=== PATIENT | female | born 1940 | race Caucasian/White ===

== ENCOUNTER 2017-04-13 06:28 | Inpatient (IN) | payer OTHER ==
--- NOTE | 2017-04-12 17:57 | GHP ---
[f rep st] PREOP HISTORY AND PHYSICAL DATE OF ADMISSION: 04/13/2017 HISTORY OF PRESENT ILLNESS: The patient is a 76-year-old female, referred to us by her herbologist for repair of a large ventral hernia. Risks and options have been discussed including, but not limit ed to, bleeding, infection, nerve injury, recurrent hernia, damage to surrounding structures, bowel i njury, and other problems, and she requests to proceed. PAST MEDICAL HISTORY: Includes diabetes, coronary artery disease, renal lithiasis, colon cancer, hig h blood pressure, hypercholesteremia. PAST SURGICAL HISTORY: Includes hysterectomy, cholecystectomy, kidney stone removal, colon resection for cancer, tonsillectomy and adenoidectomy. MEDICATIONS: Include Lipitor and metformin. Full list to be confirmed day of surgery. ALLERGIES: Sulfa, niacin. PHYSICAL EXAMINATION: GENERAL: Reveals a 76-year-old female, in no acute distress. HEENT: Normoce phalic, atraumatic. CHEST: Clear to auscultation bilaterally. CARDIAC: Regular rate and rhythm. ABDOMEN: Soft with a large reducible ventral mass. EXTREMITIES: Warm and dry. IMPRESSION: This is a 76-year-old female with a large ventral hernia. PLAN: Plan is to proceed with open ventral hernia repair with mesh. Risks and options have been dis cussed and she requests to proceed. /[id number]/MODL
[2017-04-13] MEDS ORDERED: LIDOCAINE 1% 2 ML INJ ONE (06:52)
[2017-04-13] MEDS ORDERED: ceFAZolin 2 GM/SWFI 2 GM/20 ML SYR IVP ONE (06:59)
[2017-04-13] MEDS ORDERED: LR 1,000 ML IV ONE (07:02)
[2017-04-13] MEDS ORDERED: LIDOCAINE 1% 2 ML INJ ID PRN (07:02)
[2017-04-13] MEDS ORDERED: BUPIVACAINE 0.5% 30 ML SDV ONE (07:32)
[2017-04-13 07:40] LABS: % IMMATURE GRANULYOCYTES 0.5 % (0.0-1.1); ABSOLUTE IMMATURE GRANULOCYTES 0.04 10^3/uL (0.00-0.10); ADD DIFF? NO; ADD MORPH? NO; ADD SCAN? NO; ATYPICAL LYMPHOCYTE FLAG 0 (0-99); FRAGMENT RBC FLAG 0 (0-99); HEMATOCRIT 38.8 % (38.0-47.0); LEFT SHIFT FLG 0 (0-99); LIPEMIA HEMOLYSIS FLAG 80 (0-99); MEAN CELL HEMOGLOBIN 28.7 pg (27.9-34.1); MEAN CELL HEMOGLOBIN CONCENTR. 33.5 g/dL (32.4-36.7); MEAN CELL VOLUME 85.7 fL (81.5-99.8); MEAN PLATELET VOLUME 9.2 fL (8.7-11.7); PLATELET CLUMPS FLAG 10 (0-99); PLATELET COUNT 296 10^3/uL (150-400); RED BLOOD CELL COUNT 4.53 10^6/uL (4.18-5.33); RED CELL DISTRIBUTION WIDTH 13.9 % (11.5-15.2)
--- NOTE | 2017-04-13 07:44 | PDANEPAE ---
ANE History of Present Illness Large ventral hernia s/p colon resection ANE Past Medical History - Cardiovascular History Hx Hypertension: Yes Hx Coronary Artery / Peripheral Vascular Disease: Yes Cardiovascular History Comment: HYPERLIPIDEMIA - Pulmonary History Hx COPD: No Hx Asthma/Reactive Airway Disease: No Hx Recent Upper Respiratory Infection: No Hx Oxygen in Use at Home: No Hx Sleep Apnea: No Sleep Apnea Screening Result - Last Documented: Negative - Neurologic History Hx Cerebrovascular Accident: No Hx Seizures: No Hx Dementia: No - Endocrine History Hx Diabetes: Yes Endocrine History Comment: DM II - Renal History Hx Renal Disorders: Yes Renal History Comment: URINARY RETENTION. SELF CATH TWICE DAILY. UTIs RECURRENT - Liver History Hx Hepatic Disorders: No Hepatic History Comment: SAMIR - Neurological & Psychiatric Hx Hx Neurological and Psychiatric Disorders: No Neurological / Psychiatric History Comment: SERTRALINE - Cancer History Hx Cancer: Yes Cancer History Comment: COLON CANCER - Congenital Disorder History Hx Congenital Disorders: No - GI History Hx Gastrointestinal Disorders: Yes Gastrointestinal History Comment: COLON RESECTION - Other Health History Other Health History: NEG - Chronic Pain History Chronic Pain: No - Surgical History Prior Surgeries: KIDNEY STONE REMOVAL X2. BLADDER STIMULATOR IMPLANT & REMOVAL. HYSTERECTOMY. COLON RESECTION. CHOLECYSTECTOMY. ABD MASS EXCISION ANE Review of Systems Review of Systems: - Exercise capacity METS (RN): 4 METS ANE Patient History - Allergies Allergies/Adverse Reactions: Sulfa (Sulfonamide Antibiotics) Allergy (Intermediate, Verified 04/08/17 15:12) Flushing - Home Medications Home medications: home medication list seen and reviewed Home Medications: Aspirin EC [Aspirin EC 81 mg (*)] 81 mg PO DAILY@18 04/08/17 [Last Taken ] Atorvastatin Calcium [Lipitor 10 mg (*)] 10 mg PO HS 04/08/17 [Last Taken ] FENOFIBRATE 160 mg PO HS 04/08/17 [Last Taken 04/12/17] Gabapentin [Neurontin 100 MG (*)] 100 mg PO BID 04/08/17 [Last Taken 04/12/17] Herbals/Supplements -Info Only 1 ea PO DAILY 04/08/17 [Last Taken Unknown] Hydrochlorothiazide [HCTZ (*)] 25 mg PO DAILY 04/08/17 [Last Taken 04/12/17] Levomefolate/B6/B12/Algal Oil [Metanx Capsule] 1 cap PO DAILY 04/08/17 [Last Taken Unknown] Memantine HCl [Namenda Xr] 14 mg PO DAILY@12 04/08/17 [Last Taken 04/12/17] Sertraline HCl [Zoloft 50mg (*)] 50 mg PO DAILY 04/08/17 [Last Taken 04/13/17] metFORMIN HCL [Glucophage 500 mg (*)] 500 mg PO BIDMEAL 04/08/17 [Last Taken ] - NPO status NPO Since - Liquids (Date): 04/12/17 NPO Since - Liquids (Time): 21:00 NPO Since - Solids (Date): 04/12/17 NPO Since - Solids (Time): 18:00 - Anes Hx Anes Hx: no prior problems - Smoking Hx Smoking Status: Never smoked - Family Anes Hx Family Hx Anesthesia Complications: NEG ANE Labs/Vital Signs - Labs Result Diagrams: 04/13/17 06:59 04/13/17 06:59 - Vital Signs Blood Pressure: 130/71 Heart Rate: 59 Respiratory Rate: 16 O2 Sat (%): 94 Height: 160.02 cm Weight: 74.843 kg ANE Physical Exam - Airway Neck exam: decreased ROM Mallampati Score: Class 3 Mouth exam: normal dental/mouth exam - Pulmonary Pulmonary: no respiratory distress - Cardiovascular Cardiovascular: regular rate and rhythym - ASA Status ASA Status: III (Poss diff intubation. Will have glidescope avaliable.) ANE Anesthesia Plan Anesthesia Plan: general endotracheal anesthesia, epidural (Thorasic epiduraL for POPM PSR)
[2017-04-13 07:52] LABS: ANION GAP 15 mEq/L (8-16); CALCIUM 10.2 mg/dL (8.5-10.4); CARBON DIOXIDE 23 mEq/l (22-31); CHLORIDE 103 mEq/L (97-110); GLOMERULAR FILTRATION RATE 54; GLUCOSE 114 mg/dL (70-100); POTASSIUM 4.5 mEq/L (3.5-5.2); SODIUM 141 mEq/L (134-144)
[2017-04-13] MEDS ORDERED: MIDAZOLAM 2 MG/2 ML VIAL IVP ONE (08:00)
[2017-04-13] MEDS ORDERED: MIDAZOLAM 2 MG/2 ML VIAL ONE (08:02)
[2017-04-13] MEDS ORDERED: PROPOFOL 200 MG/20 ML VIAL ONE (08:04)
[2017-04-13] MEDS ORDERED: fentaNYL 100 MCG/2 ML INJ ONE ×2 (08:04→09:34)
[2017-04-13] MEDS ORDERED: LIDOCAINE 2% 5 ML SDV ONE (08:07)
[2017-04-13] MEDS ORDERED: ROCURONIUM 50 MG/5 ML VIAL ONE ×2 (08:08→09:18)
[2017-04-13] MEDS ORDERED: NALOXONE HCL 0.4 MG/ML INJ IVP PRN ×2 (09:24)
[2017-04-13] MEDS ORDERED: ONDANSETRON 4 MG/2 ML VIAL IVP PRN ×2 (09:24→10:28)
[2017-04-13] MEDS ORDERED: HYDROmorph 10MCG/ML&BUP 0.0625% in 100ML NS EP SCH (09:24)
[2017-04-13] MEDS ORDERED: NARCOTIC DRIP BAG-TOTAL ALL TYPES EP PRN (09:24)
[2017-04-13] MEDS ORDERED: fentaNYL 100 MCG/2 ML INJ IVP PRN (09:24)
[2017-04-13] MEDS ORDERED: DEXAMETHASONE 4 MG/ML VIAL ONE (09:30)
[2017-04-13] MEDS ORDERED: ONDANSETRON 4 MG/2 ML VIAL ONE (09:31)
[2017-04-13] MEDS ORDERED: SUGAMMADEX SODIUM 200 MG/2 ML VIAL IVP ONE (09:33)
[2017-04-13] MEDS ORDERED: THROMBIN (BOVINE) 20,000 UNIT SPRAY TP ONE (09:55)
--- NOTE | 2017-04-13 10:26 | POSTANESTH ---
Post Anesthetic Evaluation Cardiovascular Status: Normal, Stable Respiratory Status: Normal, Stable Level of Consciousness/Mental Status: Alert and Oriented, Mildly Sleepy, Arousable Pain Control: Adequate, Prn Tx Ordered Nausea/Vomiting Control: Adequate, Prn Tx Ordered Complications Possibly Related to Anesthesia: None Noted
[2017-04-13] MEDS ORDERED: D50W 25 GM/50 ML SYR IVP PRN (10:34)
--- NOTE | 2017-04-13 11:57 | POSTOPPROG ---
Post Op Note Date of Operation: 04/13/17 Surgeon: Lisandro Arango Seo Manager: Mirella Mcdowell Anesthesiologist: Jcarlos Urias Anesthesia: GET(General Endotracheal) Pre-op Diagnosis: large incisional VH Post-op Diagnosis: same Procedure: open repair of large VH c mesh Findings: large defect, 20 x 25 cm mesh used Inf/Abcess present in the surg proc area at time of surgery?: No EBL: 50-100 Complications: none Drains: Memo Bunch
[2017-04-13] MEDS: Memantine Hcl [Namenda Xr] 14 MG PO SCH (12:30)
[2017-04-13] MEDS: INSULIN REGULAR HUMAN 100 UNIT/ML SC SCH ×3 (13:53→22:55)
[2017-04-13] MEDS: NS W/ 20 KCl/L 1,000 ML IV SCH ×2 (13:54→23:35)
[2017-04-13] MEDS ORDERED: ALBUMIN 5% 1,000 ML IV ONE (15:00)
[2017-04-13] MEDS: HYDROmorph 10MCG/ML&BUP 0.0625% in 100ML NS EP SCH (17:28)
--- NOTE | 2017-04-13 20:33 | GOP ---
[f rep st] OPERATIVE REPORT DATE OF OPERATION: 04/13/2017 SURGEON: Lisandro Arango MD ICEBOX MAN: BELÉN Delacruz. ANESTHESIOLOGIST: London Urias MD. PREOPERATIVE DIAGNOSIS: Giant ventral hernia. POSTOPERATIVE DIAGNOSIS: Giant ventral hernia. PROCEDURE PERFORMED: Ventral hernia repair with mesh. FINDINGS: Patient was found to have a 20 cm hernia defect in the midline of her previous old laparot jose miguel scar. There was no other defects identified, although her fascia was quite attenuated very far l aterally. ESTIMATED BLOOD LOSS: Less than 50 cc. DESCRIPTION OF PROCEDURE: Patient taken to the operating room where she received a satisfactory gene ral endotracheal anesthesia by Dr. Urias. Placed in supine position, prepped and draped in [facility] sterile fashion. A midline abdominal incision was made through the previous old scar. Dissectio n was carried down through subcutaneous tissue and the hernia sac was almost immediately encountered. The sac was dissected free from surrounding subcutaneous tissue and well back underneath the skin f laps on either side. The sac was then opened. Its contents were reduced. Excess sac was excised ba ck to good fascial edges. A dual-sided Covidien mesh patch was introduced subfascially. It was cove red with omentum. It was anchored in place around the periphery with interrupted 0 Ethibond mattress sutures. These were placed at least 3-4 inches lateral to the main incision. After that was secure d, the defect itself was closed in a dual layer [id number] type closure. This was done with a # 1 Ethibond mattress sutures. In areas that were more difficult to overlap, simple [id number]-[id number] lin tures were used approximating the fascia, which was all done without undue tension. The wound was in filtrated with 0.5% Marcaine, some topical thrombin was sprayed over the incision. A 15 round silico ne POPPY drain was brought out through a separate stab incision and secured to the skin with a 2-0 silk suture. The wound was closed in layers using a running 2-0 Vicryl suture for the subcutaneous tissue and skin marixa for the skin. The wound was dressed. She tolerated the procedure well. She was t aken to the recovery room in good condition. COMPLICATIONS: There were no complications. Taken to the recovery room in good condition. Copy requested to: Dr. Mccall /[id number]/MODL
[2017-04-13] MEDS ORDERED: NON-FORMULARY NEW DRUG (Fenofibrate [Fenofibrate] 160 MG) PO SCH (21:00)
[2017-04-13] MEDS: ATORVASTATIN CALCIUM 10 MG TAB PO SCH (21:03)
[2017-04-13] MEDS: DOCUSATE SODIUM 100 MG CAP PO SCH (21:03)
[2017-04-13] MEDS: GABAPENTIN 100 MG CAP PO SCH (21:03)
[2017-04-14 05:18] LABS: HEMATOCRIT 31.8 % (38.0-47.0); HEMOGLOBIN 10.3 g/dL (12.6-16.3)
[2017-04-14 05:37] LABS: ANION GAP 14 mEq/L (8-16); CALCIUM 8.3 mg/dL (8.5-10.4); CARBON DIOXIDE 22 mEq/l (22-31); CHLORIDE 106 mEq/L (97-110); CREATININE 1.7 mg/dL (0.6-1.0); GLOMERULAR FILTRATION RATE 29; GLUCOSE 103 mg/dL (70-100); POTASSIUM 4.7 mEq/L (3.5-5.2); SODIUM 142 mEq/L (134-144)
[2017-04-14] MEDS: NS W/ 20 KCl/L 1,000 ML IV SCH ×3 (06:26→21:55)
[2017-04-14] MEDS: INSULIN REGULAR HUMAN 100 UNIT/ML SC SCH ×4 (08:06→21:50)
[2017-04-14] MEDS: FENOFIBRATE 145 MG TAB PO SCH (08:08)
[2017-04-14] MEDS: HYDROCHLOROTHIAZIDE 25 MG TAB PO SCH (08:08)
[2017-04-14] MEDS: GABAPENTIN 100 MG CAP PO SCH ×2 (08:08→20:42)
[2017-04-14] MEDS: DOCUSATE SODIUM 100 MG CAP PO SCH ×2 (08:09→20:42)
[2017-04-14] MEDS: ENOXAPARIN 40 MG/0.4 ML SYR SC SCH ×2 (08:09→08:13)
[2017-04-14] MEDS: SERTRALINE HCL 50 MG TAB PO SCH (08:09)
[2017-04-14] MEDS: DC NARCS MISC SCH (08:16)
[2017-04-14] MEDS: REGARDING ANTICOAG MISC SCH (08:17)
--- NOTE | 2017-04-14 09:42 | SOAPPROG ---
SOAP Progress Note Assessment/Plan: Assessment/Plan: 76 Y F s/p large ventral hernia repair, POD#1. Hypotension improved. ISA. Cr 1.7. Probably 2/2 hypotension, hypovolemia. Hold nephrotoxic agents. Continue IVF. Repeat labs in am. If worse tomorrow conisder hospitalist/renal consult. Pain. Epidural helping. Still c/o breakthrough with coughing, moving. Defer to anesthesia. Continue negrete while epidural in place. Also good for accurate I and O's in light of elevated Cr. DM. BS checks. Continue sliding scale and holding of metformin 2/2 Cr. Advance diet at lunch. Patient advised to go slowly. IS. VTE ppx. d/c lovenox. change to heparin. S: no n/v. less sleepy this am. unsure about flatus. O: alert, nad mmm chest clear rrr abd soft, inc well dressed no shadowing. drain serosanguinous. +BSs. 04/14/17 09:46 Objective: Vital Signs Temp Pulse Resp BP Pulse Ox 38 C 98 16 119/46 L 91 L 04/14/17 07:56 04/14/17 07:56 04/14/17 07:56 04/14/17 07:56 04/14/17 07:56 Laboratory Results 04/14/17 04:27 04/14/17 04:27 04/13/17 04/14/17 04/15/17 05:59 05:59 05:59 Intake Total 4129 Output Total 620 Balance 3509 ICD10 Worksheet Patient Problems: Problems Problem Status Onset Ventral hernia Acute
[2017-04-14] MEDS: HYDROmorph 10MCG/ML&BUP 0.0625% in 100ML NS EP SCH (09:43)
[2017-04-14] MEDS: Memantine Hcl [Namenda Xr] 14 MG PO SCH (12:03)
[2017-04-14] MEDS: HEPARIN 5,000 UNIT/0.5 ML SYR SC SCH ×2 (14:04→20:44)
--- NOTE | 2017-04-14 15:49 | POSTANESTH ---
Post Anesthetic Evaluation Cardiovascular Status: Normal, Stable, Similar to Pre-Op Cond Respiratory Status: Normal, Stable, Similar to Pre-op Cond. Level of Consciousness/Mental Status: Can Participate in Eval, Alert and Oriented Pain Control: Adequate, Prn Tx Ordered Nausea/Vomiting Control: Adequate, Prn Tx Ordered Complications Possibly Related to Anesthesia: None Noted Notes: Pt seen and examined. POD#1 s/p larger ventral hernia repair, thoracic epidural for POPC. Pt is comfortable, rates pain as 3/10 at rest, 5/10 with movement, within her goals. Denies nausea, mild pruritis (tolerable). Was able to ambulate with assistance this am. Back site is c/d/i without e/e/e. Recommend to continue PCEA as ordered. Continue to ambulate with assistance. Thank you for this interesting consult, please don't hesitate to call with questions or concerns.
--- NOTE | 2017-04-14 16:26 | ASMTCMCOM ---
CM Note CM Note Notes: Dc needs unclear, pt had large ventral hernia repair, RN to put in for PT/OT eval, CM w/f. Date Signed: 04/14/2017 04:25 PM Electronically Signed By:Angely Lund RN
[2017-04-14] MEDS: ACETAMINOPHEN 325 MG TAB PO PRN (20:42)
[2017-04-14] MEDS: ATORVASTATIN CALCIUM 10 MG TAB PO SCH (20:42)
[2017-04-15] MEDS: diphenhydrAMINE 25 MG CAP PO PRN ×2 (04:25→21:06)
[2017-04-15] MEDS: HYDROmorph 10MCG/ML&BUP 0.0625% in 100ML NS EP SCH ×2 (04:27→23:44)
[2017-04-15] MEDS: NS W/ 20 KCl/L 1,000 ML IV SCH (04:34)
[2017-04-15 05:32] LABS: ANION GAP 13 mEq/L (8-16); CALCIUM 7.6 mg/dL (8.5-10.4); CARBON DIOXIDE 19 mEq/l (22-31); CHLORIDE 106 mEq/L (97-110); CREATININE 0.8 mg/dL (0.6-1.0); GLOMERULAR FILTRATION RATE > 60; GLUCOSE 136 mg/dL (70-100); POTASSIUM 4.4 mEq/L (3.5-5.2); SODIUM 138 mEq/L (134-144)
[2017-04-15] MEDS: HEPARIN 5,000 UNIT/0.5 ML SYR SC SCH ×3 (05:47→20:58)
[2017-04-15] MEDS: INSULIN REGULAR HUMAN 100 UNIT/ML SC SCH ×4 (09:02→20:58)
[2017-04-15] MEDS: DOCUSATE SODIUM 100 MG CAP PO SCH ×2 (09:03→20:58)
[2017-04-15] MEDS: FENOFIBRATE 145 MG TAB PO SCH (09:03)
[2017-04-15] MEDS: DC NARCS MISC SCH (09:04)
[2017-04-15] MEDS: GABAPENTIN 100 MG CAP PO SCH ×2 (09:04→20:58)
[2017-04-15] MEDS: SERTRALINE HCL 50 MG TAB PO SCH (09:04)
[2017-04-15] MEDS: HYDROCHLOROTHIAZIDE 25 MG TAB PO SCH (09:04)
[2017-04-15] MEDS: REGARDING ANTICOAG MISC SCH (09:05)
--- NOTE | 2017-04-15 10:58 | POSTANESTH ---
Post Anesthetic Evaluation Cardiovascular Status: Normal, Stable Respiratory Status: Normal, Stable Level of Consciousness/Mental Status: Can Participate in Eval Pain Control: Adequate, Prn Tx Ordered Nausea/Vomiting Control: Adequate, Prn Tx Ordered Complications Possibly Related to Anesthesia: None Noted Notes: POD #2 large ventral hernia. Pt seen and examined. Pt sitting in chair eating breakfast. Comfortable with pain about 3 at rest and increases to 5 - 6 with movement. Has not taken any pain meds other than epidural. Report no leg weakness or numbness (in excess of baseline neuropathy in feet). Has ambulated. Back inspected and appears clean and dry without redness or swelling. Catheter intact. Will continue PCEA at present settings for another day, or possibly two.
[2017-04-15] MEDS: Memantine Hcl [Namenda Xr] 14 MG PO SCH (12:05)
--- NOTE | 2017-04-15 13:31 | SOAPPROG ---
SOAP Progress Note Assessment/Plan: Assessment/Plan: - 76yo F s/p ventral hernia repair - Epidural for pain, appears to be working appropriately - Very poor pulmonary effort despite good analgesia with epidural. Discussed need for pulm toilet. Resp therapy to see her and work with breathing exercises - Abdomen soft, ND and aTTP. Has good bowel sounds and she is passing flatus 04/15/17 13:29 Subjective: eating, was upset they didnt put ham into her omelette as it was ordered Objective: Vital Signs Temp Pulse Resp BP Pulse Ox 36.7 C 114 H 20 134/81 H 92 04/15/17 11:38 04/15/17 11:38 04/15/17 11:38 04/15/17 11:38 04/15/17 11:38 Laboratory Results 04/14/17 04:27 04/15/17 04:51 04/14/17 04/15/17 04/16/17 05:59 05:59 05:59 Intake Total 4129 2332 Output Total 622 1755 160 Balance 3509 577 -160 ICD10 Worksheet Patient Problems: Problems Problem Status Onset Ventral hernia Acute - ICD10 Problem Qualifiers (1) Ventral hernia
--- NOTE | 2017-04-15 16:11 | ASMTCMCOM ---
CM Note CM Note Notes: Pt had a large hernia repair, PT/OT at this time recommending snf, but pt may progress as she continues to work with therapy. Spoke w/, states pt is independent at baseline, CM w/continue to follow. Current DC Plan: TBD Date Signed: 04/15/2017 04:11 PM Electronically Signed By:Angely Lund RN
[2017-04-15] MEDS: ATORVASTATIN CALCIUM 10 MG TAB PO SCH (20:58)
[2017-04-16] MEDS: HEPARIN 5,000 UNIT/0.5 ML SYR SC SCH ×3 (06:02→21:38)
[2017-04-16] MEDS: INSULIN REGULAR HUMAN 100 UNIT/ML SC SCH ×4 (07:59→21:39)
--- NOTE | 2017-04-16 08:55 | SOAPPROG ---
SOAP Progress Note Assessment/Plan: Assessment: 76yo female s/p open ventral hernia repair Pain controlled, tolerating diet, has not ambulated yet PE alert Abdomen bandage dry, soft nontender to palpation Plan: d/c negrete mobilize home1-2 days if epidural out and walking well. saw pt with Dr Arango 04/16/17 08:53 Objective: Vital Signs Temp Pulse Resp BP Pulse Ox 37.0 C 81 16 130/67 H 94 04/16/17 07:20 04/16/17 07:20 04/16/17 07:20 04/16/17 07:20 04/16/17 07:20 Laboratory Results 04/14/17 04:27 04/15/17 04:51 04/15/17 04/16/17 04/17/17 05:59 05:59 05:59 Intake Total 2332 1849 400 Output Total 3465 1295 Balance 577 554 400 ICD10 Worksheet Patient Problems: Problems Problem Status Onset Ventral hernia Acute
[2017-04-16] MEDS: GABAPENTIN 100 MG CAP PO SCH ×2 (09:06→21:39)
[2017-04-16] MEDS: FENOFIBRATE 145 MG TAB PO SCH (09:06)
[2017-04-16] MEDS: SERTRALINE HCL 50 MG TAB PO SCH (09:09)
[2017-04-16] MEDS: HYDROCHLOROTHIAZIDE 25 MG TAB PO SCH (09:09)
[2017-04-16] MEDS: DOCUSATE SODIUM 100 MG CAP PO SCH ×2 (09:09→21:39)
[2017-04-16] MEDS: REGARDING ANTICOAG MISC SCH (09:15)
[2017-04-16] MEDS: DC NARCS MISC SCH (09:15)
[2017-04-16] MEDS: Memantine Hcl [Namenda Xr] 14 MG PO SCH (12:38)
--- NOTE | 2017-04-16 14:54 | WOCRNPDOC ---
WOCRJenniffer Advanced Assessment Note - Skin Integrity Problem, Advanced Assess Coccyx Pressure Injury Dressing Type: Allevyn Life Exudate Amount: None Integumentary Issue Intervention: Visualized Under Dressing Iesha Wound Tissue: Blanching, Erythema Iesha Wound Swelling: None Wound Bed Color: Purple Site Measurement - Head-to-Toe Length X Width X Depth (cm): [id number] Pressure Injury Stage: Deep Tissue Injury (DTI) Pressure Injury Present on Admit: No (Hospitalist notified) Skin Integrity Problem Comment: Linear, dark purple area noted directly over patient's coccyx. Location and color are indicative of a suspected deep tissue injury. There are other similar wounds periwound, one on patient's R intergluteal cleft and one on the left. Pressure-relieving interventions, including specialty mattress, TAPS, and protective dresssing initiated by surfacing machine operator Nina this morning when wounds were noted. I ordered a more aggressive pressure-relieving bed (Hill-Rom P500), which has ordered this afternoon. Discussed w/ patient and the importance of off-loading this area to alleviate pressure and mitigate damage. Wound care will continue to follow this patient and monitor as wound evolves. Right Gluteal Cleft Pressure Injury Dressing Type: Allevyn Life Dressing Description: Intact Exudate Amount: None Integumentary Issue Intervention: Visualized Under Dressing Iesha Wound Tissue: Blanching, Erythema Iesha Wound Swelling: Mild Wound Bed Color: Purple Wound Bed Constitution: Intact Serous Filled Blister Site Measurement - Head-to-Toe Length X Width X Depth (cm): 1.5cmx1.7cmx blister Pressure Injury Stage: Deep Tissue Injury (DTI) Pressure Injury Present on Admit: No (Hospitalist notified) Skin Integrity Problem Comment: Area of dark purple, non-blanching tissue noted in patient's innermost R gluteal cleft, consistent w/ suspected deep tissue injury. There is an intact blister over part of this injury. There are other deep tissue injuries in the periwound tissues, surrounded by blanching erythema. Will initiate more aggressive off-loading interventions. Left Gluteal Cleft Pressure Injury Dressing Type: Allevyn Life Exudate Amount: None Exudate Characteristic(s): None Integumentary Issue Intervention: Visualized Under Dressing Iesha Wound Tissue: Blanching, Erythema Iesha Wound Swelling: None Wound Bed Color: Purple Site Measurement - Head-to-Toe Length X Width X Depth (cm): [id number] Pressure Injury Stage: Deep Tissue Injury (DTI) Pressure Injury Present on Admit: No (see note) Skin Integrity Problem Comment: Dark purple lesion w/ intact skin noted in patient's L intergluteal cleft, consistent in appearance w/ a suspected deep tissue injury. As previously noted, there are similar injuries noted in the immediately adjacent tissues over the coccyx and on the innermost R intergluteal cleft. Will continue to keep all wounds covered w/ bordered foam dressings, and continue off-loading area.
[2017-04-16] MEDS: ENALAPRILAT DIHYDRATE 1.25 MG/ML VIAL IVP PRN (15:07)
--- NOTE | 2017-04-16 15:49 | POSTANESTH ---
Post Anesthetic Evaluation Cardiovascular Status: Normal, Stable Respiratory Status: Tx Decrease in SpO2 Level of Consciousness/Mental Status: Can Participate in Eval Pain Control: Adequate, Prn Tx Ordered Nausea/Vomiting Control: Adequate, Prn Tx Ordered (POD 3. epidural site doing well. Tape secured. Site dry no redness. Plan to continue epidural and negrete. Hx neurogenic bladder. Self cath at home)
[2017-04-16] MEDS ORDERED: ALBUTEROL 3 ML DEYVIAL ONE (17:08)
[2017-04-16] MEDS ORDERED: ALBUTEROL 3 ML DEYVIAL IH PRN (17:51)
[2017-04-16] MEDS: HYDROmorph 10MCG/ML&BUP 0.0625% in 100ML NS EP SCH (19:36)
[2017-04-16] MEDS: ATORVASTATIN CALCIUM 10 MG TAB PO SCH (21:39)
[2017-04-17] MEDS: HEPARIN 5,000 UNIT/0.5 ML SYR SC SCH ×3 (05:03→20:26)
[2017-04-17] MEDS: INSULIN REGULAR HUMAN 100 UNIT/ML SC SCH ×4 (08:38→20:21)
[2017-04-17] MEDS: GABAPENTIN 100 MG CAP PO SCH ×2 (08:49→20:26)
[2017-04-17] MEDS: DOCUSATE SODIUM 100 MG CAP PO SCH ×2 (08:49→20:26)
[2017-04-17] MEDS: HYDROCHLOROTHIAZIDE 25 MG TAB PO SCH (08:49)
[2017-04-17] MEDS: SERTRALINE HCL 50 MG TAB PO SCH (08:49)
[2017-04-17] MEDS: FENOFIBRATE 145 MG TAB PO SCH (08:49)
--- NOTE | 2017-04-17 11:47 | SOAPPROG ---
MARIAM Progress Note Assessment/Plan: Assessment/Plan: - 76yo F s/p ventral hernia repair - Epidural out today or tomorrow, have discussed with Dr Morrow, anesthesia - tolerating diet, having some flatus - abdome soft, incision c/d/i - per RN, had some changes in HR, unclear whether or not has Hx of a-fib, will get EKG and if so will have IM see and evaluate 04/15/17 13:29 04/17/17 11:43 04/17/17 11:50 Subjective: passing some flatus. Objective: Vital Signs Temp Pulse Resp BP Pulse Ox 36.6 C 97 20 161/60 H 95 04/17/17 11:27 04/17/17 11:27 04/17/17 11:27 04/17/17 11:27 04/17/17 11:27 Laboratory Results 04/14/17 04:27 04/15/17 04:51 04/16/17 04/17/17 04/18/17 05:59 05:59 05:59 Intake Total 1849 1250 Output Total 1295 2150 320 Balance 554 -900 -320 ICD10 Worksheet Patient Problems: Problems Problem Status Onset Ventral hernia Acute - ICD10 Problem Qualifiers (1) Ventral hernia
--- NOTE | 2017-04-17 12:06 | CPEKG ---
Heart Rate: 111 RR Interval: 541 P-R Interval: 148 QRSD Interval: 102 QT Interval: 376 QTC Interval: 511 P [place]: 48 QRS Br[place]on: -42 T Wave [place]: 38 EKG Severity - ABNORMAL ECG - EKG Impression: SINUS TACHYCARDIA EKG Impression: LEFT AXIS DEVIATION EKG Impression: BORDERLINE R WAVE PROGRESSION, ANTERIOR LEADS EKG Impression: IVCD Electronically Signed By: Kulwant Ch 19-Apr-2017 11:41:52
[2017-04-17 12:32] LABS: % IMMATURE GRANULYOCYTES 1.1 % (0.0-1.1); ABSOLUTE IMMATURE GRANULOCYTES 0.09 10^3/uL (0.00-0.10); ADD DIFF? NO; ADD MORPH? NO; ADD SCAN? NO; ATYPICAL LYMPHOCYTE FLAG 0 (0-99); FRAGMENT RBC FLAG 0 (0-99); HEMATOCRIT 36.1 % (38.0-47.0); HEMOGLOBIN 11.9 g/dL (12.6-16.3); LEFT SHIFT FLG 10 (0-99); LIPEMIA HEMOLYSIS FLAG 80 (0-99); MEAN CELL HEMOGLOBIN 28.8 pg (27.9-34.1); MEAN CELL VOLUME 87.4 fL (81.5-99.8); PLATELET CLUMPS FLAG 0 (0-99); PLATELET COUNT 239 10^3/uL (150-400); RED BLOOD CELL COUNT 4.13 10^6/uL (4.18-5.33); RED CELL DISTRIBUTION WIDTH 14.1 % (11.5-15.2)
[2017-04-17] MEDS: DC NARCS MISC SCH (12:43)
[2017-04-17] MEDS: Memantine Hcl [Namenda Xr] 14 MG PO SCH (12:46)
[2017-04-17] MEDS: REGARDING ANTICOAG MISC SCH (12:49)
[2017-04-17 12:57] LABS: ANION GAP 12 mEq/L (8-16); CALCIUM 9.3 mg/dL (8.5-10.4); CARBON DIOXIDE 28 mEq/l (22-31); CHLORIDE 95 mEq/L (97-110); CREATININE 0.6 mg/dL (0.6-1.0); GLOMERULAR FILTRATION RATE > 60; GLUCOSE 179 mg/dL (70-100); POTASSIUM 3.8 mEq/L (3.5-5.2); SODIUM 135 mEq/L (134-144)
--- NOTE | 2017-04-17 12:58 | POSTANESTH ---
Post Anesthetic Evaluation Cardiovascular Status: Normal, Stable, Similar to Pre-Op Cond Respiratory Status: Normal, Stable, Similar to Pre-op Cond. Level of Consciousness/Mental Status: Can Participate in Eval, Alert and Oriented Pain Control: Adequate, Prn Tx Ordered (Pain very well controlled. Patient reports 0/10 pain even with epidural running at low infusion rate of 4ml/hr. Discussion with patient, patient and anesthesiologist agree to discontinue epidural today. Catheter pulled. (>6hrs since last Heparin SQ dose, no need to delay or discontinue next Heparin SQ dose).) Nausea/Vomiting Control: Adequate, Prn Tx Ordered
--- NOTE | 2017-04-17 15:37 | ASMTCMCOM ---
CM Note CM Note Notes: Pt. refused OT twice. Has worked w/ PT. PT recommending SNF. Unfortunately CM did not have time to meet w/ Pt. today. Did make [employer] referrals for SNF near Pt's home in [place] should she want to go to SNF - [facility], [facility]. Current plan: SNF vs HC. See [employer] for SNF referrals that have been sent. Date Signed: 04/17/2017 03:36 PM Electronically Signed By:Belinda Griffin LCSW
[2017-04-17] MEDS ORDERED: METOPROLOL TARTRATE 50 MG TAB PO ONE (17:45)
[2017-04-17] MEDS: LOSARTAN POTASSIUM 50 MG TAB PO SCH (17:46)
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
[2017-04-17] MEDS: ATORVASTATIN CALCIUM 10 MG TAB PO SCH (20:26)
[2017-04-17] MEDS ORDERED: METOPROLOL TARTRATE 50 MG TAB PO SCH (21:00)
[2017-04-18] MEDS: ENALAPRILAT DIHYDRATE 1.25 MG/ML VIAL IVP PRN ×2 (04:02→15:58)
[2017-04-18] MEDS: HEPARIN 5,000 UNIT/0.5 ML SYR SC SCH ×3 (05:02→22:02)
[2017-04-18] MEDS: ACETAMINOPHEN 325 MG TAB PO PRN ×3 (05:59→19:15)
[2017-04-18] MEDS: METOPROLOL TARTRATE 50 MG TAB PO SCH ×2 (07:56→22:02)
[2017-04-18] MEDS: HYDROCHLOROTHIAZIDE 25 MG TAB PO SCH (07:57)
[2017-04-18] MEDS: FENOFIBRATE 145 MG TAB PO SCH (07:57)
[2017-04-18] MEDS: DOCUSATE SODIUM 100 MG CAP PO SCH ×2 (07:57→22:02)
[2017-04-18] MEDS: GABAPENTIN 100 MG CAP PO SCH ×2 (07:57→22:02)
[2017-04-18] MEDS: LOSARTAN POTASSIUM 50 MG TAB PO SCH (07:57)
[2017-04-18] MEDS: SERTRALINE HCL 50 MG TAB PO SCH (07:57)
[2017-04-18] MEDS: INSULIN REGULAR HUMAN 100 UNIT/ML SC SCH ×4 (08:06→22:22)
[2017-04-18] MEDS ORDERED: FUROSEMIDE 20 MG/2 ML VIAL IVP ONE (08:56)
[2017-04-18] MEDS: REGARDING ANTICOAG MISC SCH (09:38)
[2017-04-18] MEDS: DC NARCS MISC SCH (09:38)
[2017-04-18 10:07] LABS: ANION GAP 15 mEq/L (8-16); CALCIUM 10.3 mg/dL (8.5-10.4); CARBON DIOXIDE 27 mEq/l (22-31); CHLORIDE 99 mEq/L (97-110); CREATININE 0.7 mg/dL (0.6-1.0); GLOMERULAR FILTRATION RATE > 60; GLUCOSE 183 mg/dL (70-100); POTASSIUM 4.4 mEq/L (3.5-5.2); SODIUM 141 mEq/L (134-144)
--- NOTE | 2017-04-18 10:53 | HOSPPROG ---
Hospitalist Progress Note Assessment/Plan: DIAGNOSES: -tachycardia and hypertension: These appear due to metoprolol and losartan being inadvertantly missed on her home med rec, some BB rebound effect. She has some ongoing the uzqj-nw-mnldsbde discomfort which may also be pushing her blood pressure up -post op hypoxemia: -there is obesity, post op abdominal distension, recumbency effects, post anesthesia effects, etc, perhaps minimal chf from fluids -today she is actually at 90% on room air sitting in a chair but feels a little bit winded lying down; suspect this is due to abdominal discomfort and distension, but she also does appear to be mildly volume overloaded on exam. Diuresis may help -constipation,? Partial Ileus -her volume overload may be impacting this, and it would be useful to recheck potassium -diabetes mellitus -sugars are in reasonable range for the inpatient setting at this time -status post ventral hernia repair PLANS: -continue on beta-gopal and losartan -increase activity as able -bowel protocol -will give 1 dose of Lasix and follow her response to that -check potassium -will continue to follow sugars while she is here as well SUBJECTIVE: Overall feels better today with better energy. 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: Sinus Exam: alert oriented more alert and energetic looking today skin warm dry color ok resps not labored lungs clear BSs, takes a better breath today heart regular abd soft nondistended nontender, bowel sounds present limbs warm, some bilateral leg edema is present iv site ok Laboratory data: Fingerstick sugars and lab sugars are in acceptable range for inpatient purposes Objective: Vital Signs Temp Pulse Resp BP Pulse Ox 37.4 C 82 20 170/77 H 96 04/18/17 07:09 04/18/17 07:09 04/18/17 07:09 04/18/17 07:09 04/18/17 07:09 Laboratory Results 04/17/17 12:23 04/18/17 09:43 04/17/17 04/18/17 04/19/17 06:59 06:59 06:59 Intake Total 850 1230 Output Total 2150 3585 1020 Balance -1300 -3585 210 ICD10 Worksheet Patient Problems: Problems Problem Status Onset Ventral hernia Acute
[2017-04-18] MEDS ORDERED: D10W 250 ML PRN HYPOGLYCEMIA IV (11:00)
--- NOTE | 2017-04-18 12:31 | ASMTCMCOM ---
CM Note CM Note Notes: Chart reviewed. Patient slowly progressing. Stilll has negrete and surgical drain. Ambulated further today. HHC versus SNF. Gave family list of agencies. No preference noted. Referral to [facility] via allscripts. Plan likely home with [facility]. CM to follow. Date Signed: 04/18/2017 12:31 PM Electronically Signed By:Sarah Chow RN
[2017-04-18] MEDS: Memantine Hcl [Namenda Xr] 14 MG PO SCH (12:43)
--- NOTE | 2017-04-18 14:52 | SOAPPROG ---
MARIAM Progress Note Assessment/Plan: Assessment/Plan: - 76yo F s/p ventral hernia repair - Epidural out yesterday, pain controlled - Tolerating reg diet, bowel regimen added - Lasix per IM this AM - Pt/OT, likely home tomorrow 04/15/17 13:29 04/17/17 11:43 04/17/17 11:50 04/18/17 14:51 Subjective: walking, appears more alert and energetic today Objective: Vital Signs Temp Pulse Resp BP Pulse Ox 36.7 C 69 16 155/96 H 93 04/18/17 11:57 04/18/17 11:57 04/18/17 11:57 04/18/17 11:57 04/18/17 11:57 Laboratory Results 04/17/17 12:23 04/18/17 09:43 04/17/17 04/18/17 04/19/17 05:59 05:59 05:59 Intake Total 1250 1230 Output Total 8800 5444 7995 [facility] -965 -9366 -1200 ICD10 Worksheet Patient Problems: Problems Problem Status Onset Ventral hernia Acute - ICD10 Problem Qualifiers (1) Ventral hernia
[2017-04-18] MEDS: ATORVASTATIN CALCIUM 10 MG TAB PO SCH (22:02)
[2017-04-18] MEDS ORDERED: MELATONIN 3 MG TAB PO SCH (22:30)
[2017-04-19 05:10] LABS: ANION GAP 10 mEq/L (8-16); CALCIUM 9.6 mg/dL (8.5-10.4); CARBON DIOXIDE 31 mEq/l (22-31); CHLORIDE 104 mEq/L (97-110); CREATININE 0.7 mg/dL (0.6-1.0); GLOMERULAR FILTRATION RATE > 60; GLUCOSE 107 mg/dL (70-100); POTASSIUM 3.9 mEq/L (3.5-5.2); SODIUM 145 mEq/L (134-144)
[2017-04-19] MEDS: HEPARIN 5,000 UNIT/0.5 ML SYR SC SCH ×2 (06:22→16:28)
[2017-04-19] MEDS: LOSARTAN POTASSIUM 50 MG TAB PO SCH (08:48)
[2017-04-19] MEDS: FENOFIBRATE 145 MG TAB PO SCH (08:49)
[2017-04-19] MEDS: HYDROCHLOROTHIAZIDE 25 MG TAB PO SCH (08:49)
[2017-04-19] MEDS: SERTRALINE HCL 50 MG TAB PO SCH (08:49)
[2017-04-19] MEDS: GABAPENTIN 100 MG CAP PO SCH (08:49)
[2017-04-19] MEDS: DOCUSATE SODIUM 100 MG CAP PO SCH (08:49)
[2017-04-19] MEDS: METOPROLOL TARTRATE 50 MG TAB PO SCH (08:49)
[2017-04-19] MEDS: INSULIN REGULAR HUMAN 100 UNIT/ML SC SCH ×2 (08:56→13:44)
--- NOTE | 2017-04-19 09:12 | SOAPPROG ---
SOAP Progress Note Assessment/Plan: Assessment/Plan: 76 Y F s/p large ventral hernia repair, POD#6. D/c negrete. D/c POPPY drain. Likely home vs SNF today. Seen with Dr. Arango. S: says she walks fine with walker. +BM yesterday. eager for discharge. O: alert, nad mmm no wob rrr abd soft, inc CDI, no erythema. drain serosanguinous 04/19/17 09:11 Objective: Vital Signs Temp Pulse Resp BP Pulse Ox 37.0 C 73 16 165/81 H 95 04/19/17 07:36 04/19/17 08:49 04/19/17 07:36 04/19/17 08:49 04/19/17 07:36 Laboratory Results 04/17/17 12:23 04/19/17 04:22 04/18/17 04/19/17 04/20/17 05:59 05:59 05:59 Intake Total 1230 Output Total 2430 1302 [facility] -3156 -8451 ICD10 Worksheet Patient Problems: Problems Problem Status Onset Ventral hernia Acute
--- NOTE | 2017-04-19 09:33 | HOSPPROG ---
Hospitalist Progress Note Assessment/Plan: DIAGNOSES: -tachycardia and hypertension: These appear due to metoprolol and losartan being inadvertantly missed on her home med rec, some BB rebound effect. She has some ongoing the hyjm-tz-cwlhaazr discomfort which may also be pushing her blood pressure up -post op hypoxemia: -there is obesity, post op abdominal distension, recumbency effects, post anesthesia effects, etc, perhaps minimal chf from fluids -today she is actually at 90% on room air sitting in a chair but feels a little bit winded lying down; suspect this is due to abdominal discomfort and distension, volume status seems better today -constipation,? Partial Ileus -improved -diabetes mellitus -sugars mostly in reasonable range for the inpatient setting at this time -status post ventral hernia repair PLANS: -continue on beta-gopal and losartan -increase activity as able -bowel protocol -will give 1 dose of Lasix and follow her response to that -check potassium -will continue to follow sugars while she is here as well I agree the surgery team that she is stable for discharge at this point. I spoke at length with the patient and her as well as her nurse and our case liner regarding the need to road test her on stairs and with transfers in and out of chairs on off commode. She will certainly need at least home care but they would like to be further assessed for the possibility of needing care home facility today. Should be able to answer this with therapies easily enough and she can either go home with home care or to a care home facility. SUBJECTIVE: States she feels well today She had some anxiety last night at bedtime over how her breathing but due when she would lie down. She had been off oxygen during a lot of the day but put it back on finally did get some sleep No other new symptoms. She still has some abdominal discomfort had a bowel movement yesterday is eating well has been walking well in the hallway. She has not tried stairs and she and her are both concerned about how she will do with transfers with chairs and commode at home. She has 3 stairs to get in and out of her house. 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: alert oriented alert and energetic today skin warm dry color ok resps not labored lungs clear BSs, takes a better breath today heart regular abd soft nondistended nontender, bowel sounds present limbs warm, notably less bilateral leg edema after diuresis yesterday iv site ok Laboratory data: Fingerstick sugars a couple of higher sugars last evening but mostly they are in good range here last day Objective: Vital Signs Temp Pulse Resp BP Pulse Ox 37.0 C 73 16 165/81 H 95 04/19/17 07:36 04/19/17 08:49 04/19/17 07:36 04/19/17 08:49 04/19/17 07:36 Laboratory Results 04/17/17 12:23 04/19/17 04:22 04/18/17 04/19/17 04/20/17 06:59 06:59 06:59 Intake Total 1230 Output Total 4754 6121 [id number] -1239 - Time Spent With Patient Time Spent with Patient: greater than 25 minutes Time Spent with Patient: Greater than 25 minutes spent on this patients care, greater than 50% of time spent counseling, educating, and coordinating care regarding the above mentioned plan. ICD10 Worksheet Patient Problems: Problems Problem Status Onset Ventral hernia Acute
[2017-04-19] MEDS: ACETAMINOPHEN 325 MG TAB PO PRN (10:36)
[2017-04-19 10:57] VITALS: BP 177/79; PULSE 75; RESP 14; TEMP 98.5
[2017-04-19] MEDS: DC NARCS MISC SCH (11:03)
--- NOTE | 2017-04-19 12:52 | PDHOMEO2F ---
Home Oxygen Face to Face Home Orders: I certify that a physician or a nurse practitioner or physician's nurse's assistant has had a vnlr-aw-cbce encounter with this patient on the date of this order due to the diagnosis listed, which relates to the primary reason the patient requires home oxygen. Alternative treatments have been tried, or considered, and deemed ineffective. It is anticipated that supplemental oxygen will result in improvement with treatment. Home oxygen qualifying diagnosis: postoperative atelectasis Home oxygen secondary diagnosis: postoperative hypoxia SpO2 on room air (%): <88% Frequency of home oxygen needed: continuous Home oxygen liters per minute: 2 Home oxygen delivery device: nasal cannula Concentrator: No E-tanks for mobility and back up: No I certify that, based on these findings, the home oxygen is medically necessary for this patient for the following length of time. Length of time home oxygen needed: 1 month Home Oxygen Comment: until f/u c PCP
--- NOTE | 2017-04-19 13:37 | ASMTCMCOM ---
CM Note CM Note Notes: CM met w/ pt and family for dispo planning. OT is recommending HC. Pt and family would like to d/c home w/ HC. Pt and family selected [facility]. CM made referrals to both faciltiies. [facility] is able to follow pt at time of d/c for PT, RN and OT services. Pts plans on picking up a walker and getting a stool for the shower. CM notified pt that [facility] will be the following HC agency. CM sent orders to [facility]. CM available for changes. Date Signed: 04/19/2017 01:37 PM Electronically Signed By:JAMES Garcia
[2017-04-19] MEDS: Memantine Hcl [Namenda Xr] 14 MG PO SCH (13:50)
[2017-04-19 14:37] VITALS: O2SAT 84
--- NOTE | 2017-04-19 14:42 | PDIAF ---
- Diagnosis Diagnosis: s/p repair of gigantic ventral hernia Code Status: Full Code - Medication Management Discharge Medications: Medications to Continue on Transfer Aspirin EC [Aspirin EC 81 mg (*)] 81 mg PO DAILY@18 04/08/17 [Last Taken ] Atorvastatin Calcium [Lipitor 10 mg (*)] 10 mg PO HS 04/08/17 [Last Taken ] FENOFIBRATE 160 mg PO HS 04/08/17 [Last Taken 04/12/17] Gabapentin [Neurontin 100 MG (*)] 100 mg PO BID 04/08/17 [Last Taken 04/12/17] Herbals/Supplements -Info Only 1 ea PO DAILY 04/08/17 [Last Taken Unknown] Hydrochlorothiazide [HCTZ (*)] 25 mg PO DAILY 04/08/17 [Last Taken 04/12/17] Levomefolate/B6/B12/Algal Oil [Metanx Capsule] 1 cap PO DAILY 04/08/17 [Last Taken Unknown] Memantine HCl [Namenda Xr] 14 mg PO DAILY@12 04/08/17 [Last Taken 04/12/17] Sertraline HCl [Zoloft 50mg (*)] 50 mg PO DAILY 04/08/17 [Last Taken 04/13/17] metFORMIN HCL [Glucophage 500 mg (*)] 500 mg PO BIDMEAL 04/08/17 [Last Taken ] Losartan/Hydrochlorothiazide [Losartan-Hctz 100-25 Mg Tab] 1 each PO DAILY 04/19 [Last Taken Unknown] Metoprolol Tartrate [Lopressor 50 mg (*)] 50 mg PO BID tab 04/19/17 [Last Taken Unknown] Discharge Medications: Refer to the Discharge Home Medication list for PRN reason. PICC Care - Routine: N/A - Orders Services needed: Home Care, Registered Nurse, Physical Therapy, Occupational Therapy Home Care Face to Face: I certify that this patient was under my care and that I had the required xwja-gz-smhl encounter meeting the encounter requirements on the discharge day. My findings support the fact that the patient is homebound as defined in Home Care Face to Face Continued: CMS Chapter 7 Medicare Benefits Manual 30.1.1 , The condition of the patient is such that there exists a normal inability to leave home and consequently, leaving home would require a considerable and taxing effort. Isolation Type: None Diet Recommendation: ADA 2000 consistent carb Diet Texture: Regular Texture Diet Wound Care Instructions: will need to replace a dressing at her former drain site until it is healed. may use gauze. may use bandaid if no drainage. ok to shower over wounds. no baths or pools. Activity/Weight Bearing Restrictions: No lifting over 15 lbs. - Follow Up Care Current Providers and Referrals: JONATHON SIEGEL [Other] Lisandro Arango MD [Medical Doctor] - follow up in 1 week
--- NOTE | 2017-04-19 16:37 | ASDISCHSUM ---
Discharge Information Plan Status:Home with Home Health Medically Cleared to Leave:04/18/2017 Discharge Date:04/19/2017 03:46 PM D/C Disposition:[facility] Facility ADT D/C Disposition:Home, Routine, Self-Care Projected Discharge Date:04/19/2017 11:00 AM Transportation at D/C: Discharge Delay Reason: Follow-Up Date:04/19/2017 11:00 AM Discharge Slot: Final Diagnosis: Placement Information Referral Type:*Care Home/SNF Referral ID:[id number] Provider Name: Address 1: Phone Number: Address 2: Fax Number: City: Selection Factors: State: Referral Type:*Home Health Care Services Referral ID:[id number] Provider Name:[facility] Address 1:[address] Address 2: City:[place] Selection Factors: State:[place] Patient Contact Information Contact Name:ALFRED Relationship: Address:[address] City:[place] Alternate Phone: [facility]/Zip Code:[place] [address] Email: Financial Information Financial Class: Primary Plan Desc:MEDICARE INPATIENT Primary Plan Number:[id number] Secondary Plan Desc:[facility] Secondary Plan Number:[id number] Assessment Information [facility] CM Progress Note CM Note CM Note Notes: Dc needs unclear, pt had large ventral hernia repair, RN to put in for PT/OT beka, CM w/f. Date Signed: 04/14/2017 04:25 PM Electronically Signed By:Angely Lund RN [facility] CM Progress Note CM Note CM Note Notes: Pt had a large hernia repair, PT/OT at this time recommending snf, but pt may progress as she continues to work with therapy. Spoke w/, states pt is independent at baseline, CM w/continue to follow. Current DC Plan: TBD Date Signed: 04/15/2017 04:11 PM Electronically Signed By:Angely Lund RN [facility] Progress Note CM Note CM Note Notes: Pt. refused OT twice. Has worked w/ PT. PT recommending SNF. Unfortunately CM did not have time to meet w/ Pt. today. Did make [employer] referrals for SNF near Pt's home in [place] should she want to go to SNF - [facility], [facility], and [facility]. Current plan: SNF vs HC. See [employer] for SNF referrals that have been sent. Date Signed: 04/17/2017 03:36 PM Electronically Signed By:Belinda Griffin LCSW LACE LACAlondra Length of stay for Answers: 4-6 days current admission Acuity / Level of Care Answers: No. Comorbidities - select Answers: Diabetes without all that apply complications Any tumor (including lymphoma or leukemia) Emergency dept visits in Answers: 0 last 6 months Score: 7 Date Signed: 04/18/2017 12:22 PM Electronically Signed By:Sarah Chow RN [facility] Progress Note CM Note CM Note Notes: Chart reviewed. Patient slowly progressing. Ericl has negrete and surgical drain. Ambulated further today. HHC versus SNF. Gave family list of agencies. No preference noted. Referral to [facility] via allscripts. Plan likely home with [facility]. CM to follow. Date Signed: 04/18/2017 12:31 PM Electronically Signed By:Sarah Chow RN [facility] RYAN Progress Note CM Note CM Note Notes: CM met w/ pt and family for dispo planning. OT is recommending HC. Pt and family would like to d/c home w/ HC. Pt and family selected [facility] and [facility]. CM made referrals to both faciltiies. [facility] is able to follow pt at time of d/c for PT, RN and OT services. Pts plans on picking up a walker and getting a stool for the shower. CM notified pt that [facility] will be the following HC agency. CM sent orders to [facility]. CM available for changes. Date Signed: 04/19/2017 01:37 PM Electronically Signed By:JAMES Garcia Intervention Information Intervention Type:*Incorrect Registration Date of Service:04/13/2017 01:55 PM Patient Type:Observation Staff Member:DARLEEN aGndhi, [facility] Hours: Discipline: Severity: Comment: Intervention Type:*IM-Signed Date of Service:04/19/2017 01:50 PM Patient Type:Inpatient Staff Member:Justina Major Hours: Discipline: Severity: Comment:
[2017-04-19] MEDS ORDERED: MELATONIN 3 MG TAB PO SCH (21:00)
== END 2017-04-19 15:46 | disposition home or self-care (01) | DRG 355 ==
LOC: F3N 06:28 → OBSVTOIN 10:26 → F3E 11:54
PROVIDERS: ADMIT Surgery; ATTEND Surgery
PROC: 0WUF0JZ Supplement Abdominal Wall with Synthetic Substitute, Open Approach (ICD-10-PCS; principal; 2017-04-13 08:00)
DX: K43.9 Ventral hernia without obstruction or gangrene (principal); R00.0 Tachycardia, unspecified; T44.7X6A Underdosing of beta-adrenoreceptor antagonists, initial encounter; R09.02 Hypoxemia; K59.00 Constipation, unspecified; E11.9 Type 2 diabetes mellitus without complications; I25.10 Atherosclerotic heart disease of native coronary artery without angina pectoris; I10 Essential (primary) hypertension; E78.00 Pure hypercholesterolemia, unspecified; Z85.038 Personal history of other malignant neoplasm of large intestine
CPT/HCPCS: 97116-GP; 97162-GP; 97165-GO; 97530-GP; 97535-GO; C1781; G8978-GP-CL; G8979-GP-CI; G8979-GP-CJ; G8980-GP-CJ; G8987-GO-CJ; G8988-GO-CI; J0690; J1100; J1170; J1650; J1815; J1940; J2250; J2405; J2704; J3010; P9041

== ENCOUNTER → 2017-05-21 | Outpatient (CLI) | payer OTHER ==
[~2017-05-21] MED LIST: IOPAMIDOL (ISOVUE-300) 100 ML BTL ONE
== END ==
LOC: FIMAGING 16:58
PROVIDERS: ATTEND Surgery
DX: K46.9 Unspecified abdominal hernia without obstruction or gangrene (principal); N20.0 Calculus of kidney
CPT/HCPCS: 74177; Q9967